=== PATIENT | male | born 1970 | race Caucasian/White ===

== ENCOUNTER 2020-08-29 18:11 | Inpatient (IN) | payer OTHER, MEDICAID, SELFPAY ==
[2020-08-29] VITALS (16 sets, daily range): BP systolic 79–115; BP diastolic 49–63; PULSE 87–102; RESP 18; TEMP 36.1; O2SAT 99–100; BMI 27.6
[2020-08-29 19:03] LABS: Bacteria Urine None Seen
[2020-08-29 19:06] LABS: Appearance Urine UA CLEAR; Bilirubin Urine UA NEGATIVE (NEGATIVE); Color Urine UA YELLOW; Glucose Urine UA NEGATIVE (Negative); Ketones Urine UA NEGATIVE (NEGATIVE); Leukocyte Esterase Urine UA NEGATIVE (NEGATIVE); Nitrite Urine UA NEGATIVE (Negative); Occult Blood Urine UA 2+ (Negative); Protein Urine UA NEGATIVE (Negative); Specific Gravity Urine UA 1.015 (1.000-1.035); Urobilinogen Urine UA 0.2 E.U./dL (0.2)
[2020-08-29 19:14] LABS: Culture Indicated Urine Cult Not Indicated; RBC Urine 10-30/HPF (0-5/HPF); Squamous Epithelial Cell Urine 0-1 /HPF (0-5/HPF); WBC Urine 0-1/HPF (0-5/HPF)
[2020-08-29 19:25] LABS: Add Manual Diff / Slide Review NO; Basophils Absolute Auto 100 /uL (0-100); Basophils Percent Auto 1.1 % (0-2); Eosinophils Absolute Auto 100 /uL (0-450); Eosinophils Percent Auto 1.6 % (2-4); Hematocrit 26.3 % (41-53); Hemoglobin 9.1 g/dL (13.5-17.5); Lymphocytes Absolute Auto 1000 /uL (1100-4500); Lymphocytes Percent Auto 19.1 % (25-40); Mean Corpuscular HGB Conc 34.4 % (30-36); Mean Corpuscular Hemoglobin 31.8 PG (26-34); Mean Corpuscular Volume 92.6 fL (80-100); Monocytes Absolute Auto 1100 /uL (0-900); Monocytes Percent Auto 20.8 % (3-14); Neutrophils Absolute Auto 3100 /uL (1500-7000); Neutrophils Percent Auto 57.4 % (50-75); Platelet Count 117 X10^3/uL (150-400); Red Blood Cell Count 2.84 X10^6/uL (4.5-5.9); Red Cell Distribution Width 15.2 % (11.6-14.8); White Blood Cell Count 5.4 X10^3/uL (4.5-11.0)
[2020-08-29 19:36] LABS: Ammonia (NH3) 102 umol/L (9-30)
[2020-08-29 19:39] LABS: Alanine Aminotransferase 32 IU/L (<50); Albumin 2.9 g/dL (3.5-5.0); Alkaline Phosphatase 115 U/L (38-126); Aspartate Aminotransferase 48 IU/L (17-59); BUN Creatinine Ratio 51.2 (6-22); Bilirubin Total 1.1 mg/dL (0.2-1.3); Blood Urea Nitrogen 86 mg/dL (9-20); Calcium 8.6 mg/dL (8.4-10.2); Carbon Dioxide 23 mmol/L (22-32); Chloride 98 mmol/L (98-107); Estimated Glomerular Filt Rate 43.1 mL/min (>60); Globulin 2.8 g/dL (1.7-4.1); Glucose 209 mg/dL (70-100); HEMOLYSIS < 15 (0-50); Lipase 899 U/L (23-300); Potassium 4.7 mmol/L (3.4-5.1); Sodium 126 mmol/L (137-145); Total Protein 5.7 g/dL (6.3-8.2)
[2020-08-29 20:11] LABS: COVID19 - ADMIT (NP swab/PCR) Negative (Negative)
--- NOTE | 2020-08-29 20:28 | PC.NURSE ---
Patient requesting to go to bathroom for bowel movement. Refuses to use bedside commode. Two person assistance with walker in room to wheelchair. patient very unsteady.
--- NOTE | 2020-08-29 21:32 | ED.RECABL ---
HPI - Recheck/Abnormal Lab/Rx General Chief Complaint: Recheck/Abnormal Lab/Rx Stated Complaint: Live CA, unable to care for self Time Seen by Provider: 08/29/20 20:57 Source: patient and EMS Mode of arrival: EMS Limitations: altered mental status History of Present Illness HPI narrative: This is a 50-year-old male with history of liver cancer. Patient states he follows with an solid waste landfill technician when asked specifically but is unable to give me the name. He EMS states they have been to his house 4 times in the last 24-48 hours to become up off floor. He has become increasingly weak. Patient states that he is currently seeking hospice treatment and is unable to care for himself at home. He does live with his mother but he typically performs his own activities of daily living. He wants to be comfort measures. He does not give much history. He is able to tell me that he is allergic to lisinopril. Related Data Home Medications Medication Instructions Recorded Confirmed albuterol sulfate 90 mcg/actuation 1 - 2 puff INHALATION Q4HR PRN 08/30/20 08/30/20 aerosol inhaler bupropion HCl 150 mg tablet,12 hr 150 mg PO BID 08/30/20 08/30/20 sustained-release insulin glargine 100 unit/mL 65 unit SUBCUT DAILY 08/30/20 08/30/20 subcutaneous cartridge insulin regular human 100 unit/mL 1 sliding scale dose SUBCUT 08/30/20 08/30/20 injection solution USEASDIRECTD rifaximin 550 mg tablet (Xifaxan) 550 mg PO BID 08/30/20 08/30/20 tamsulosin 0.4 mg capsule 0.4 mg PO DAILY 08/30/20 08/30/20 venlafaxine 75 mg capsule,extended 75 mg PO DAILY 08/30/20 08/30/20 release 24 hr Allergies Allergy/AdvReac Type Severity Reaction Status Date / Time cantaloupe Allergy Severe Anaphylaxis Verified 08/29/20 19:03 melon Allergy Severe Anaphylaxis Verified 08/29/20 19:03 lisinopril AdvReac Unknown Verified 08/29/20 19:03 Review of Systems Review of Systems ROS Unobtainable: All systems reviewed & are unremarkable except as noted in HPI and below Patient History Medical History End stage liver disease Social History household members: family Smoking Status: Never smoker alcohol intake: former Exam Narrative Exam Narrative: GEN: well nourished, well appearing male, alert, oriented to self patient appears to be in mild distress. Patient able to answer questions but does seem confused. HEENT: Atraumatic, pupils are equal round reactive to light, extraocular movements are intact, nares are clear. Throat is clear without any exudates, erythema, tonsillar enlargement or uvular deviation, no facial droop. HEART: Regular rate and rhythm without murmur, clicks, rubs. Pulses are equal in upper and lower extremities LUNGS:Lungs clear to auscultation, no wheezes, rales, crackles, chest moves symmetrically ABD:bowel sounds normal, soft, non-tender, no guarding, rebound, rigidity, no masses noted, no hepatosplenomegaly :No CVA tenderness MSCL: Non-tender, no muscle atrophy, patient moves legs and arms but does seem generally weak. Patient unable to stand safely unassisted, required two nurses to stand transfer from bed to chair. NEURO:CN 2-12 intact, sensation normal, reflexes 2/4 upper and lower extremities. SKIN: Rash, erythema or skin changes noted. Initial Vital Signs Initial Vital Signs: Vital Signs Temperature 97.0 F L 08/29/20 18:22 Pulse Rate 95 H 08/29/20 18:22 Respiratory Rate 18 08/29/20 18:22 Blood Pressure 115/57 L 08/29/20 18:22 Pulse Oximetry 100 08/29/20 18:22 Course Orders Ordered: ED Orders 08/29/20 23:11 CT abdomen pelvis w con Stat CT head/brain wo con Stat 08/29/20 23:40 COVID19 - ADMIT ([employer] swab/PCR) Stat Acetaminophen (Acetaminophen 325 Mg Tablet) 650 mg PO Q6HR PRN PRN Reason: Fever/Mild Pain (1-3) Sodium Chloride (Normal Saline 0.9%) 1,000 mls @ 125 mls/hr IV CONT ASHLEY Last Admin: 08/30/20 03:20 Dose: 125 mls/hr Documented by: INDY Piperacillin Sod/Tazobactam (Sod 4.5 gm/ Sodium Chloride) 100 mls @ 25 mls/hr IV Q8H ASHLEY Last Admin: 08/30/20 06:07 Dose: 25 mls/hr Documented by: INDY Ondansetron HCl (Ondansetron 4 Mg/2 Ml Inj) 4 mg IV Q4HR PRN PRN Reason: Nausea And Vomiting Discontinued Medications Piperacillin Sod/Tazobactam (Sod 4.5 gm/ Sodium Chloride) 100 mls @ 200 mls/hr IV NOW ONE Stop: 08/30/20 00:59 Last Infusion: 08/30/20 03:20 Dose: 0 mls/hr Documented by: Infusion: 08/30/20 01:44 Dose: 200 mls/hr Documented by: Admin: 08/30/20 01:25 Dose: 200 mls/hr Documented by: DONG Lactulose (Lactulose 20 Gm/30 Ml Solution) 20 gm PO NOW ONE Stop: 08/29/20 23:13 Last Admin: 08/30/20 00:07 Dose: 20 gm Documented by: DONG Consultations Consultation #1: Dr. Booker, patient's labs reviewed. Patient is requesting hospice but also confused. I do not have any prior history available for the patient. Discussed and like to get some additional imaging. This was obtained and we were able to get some records from [facility]. Appears patient does have a history of liver cell carcinoma, alcoholic cirrhosis and metabolic encephalopathy in the past. Patient also has some diabetes and had some additional information that he was diverted here. Consultation #2: Dr. Norris, is happy to follow with the patient. Discussed patient's confused so they are still some work to evaluate patient's goals of care fully. Plan for Zosyn for IV antibiotics, NPO. Vital Signs Vital signs: Vital Signs - 8 hr 08/29/20 23:00 08/29/20 23:33 08/29/20 23:40 Pulse Rate 102 H 102 H Blood Pressure 105/58 L 99/58 L Pulse Oximetry 99 100 08/30/20 00:00 08/30/20 00:30 Pulse Rate 103 H 103 H Blood Pressure Pulse Oximetry 99 99 MDM - Recheck/Abnormal Lab/Rx Lab Data Result diagrams: 08/29/20 19:11 08/29/20 19:11 Labs: Lab Results 08/29/20 08/29/20 08/29/20 Range/Units 19:00 19:00 19:11 WBC 5.4 (4.5-11.0) X10^3/uL RBC 2.84 L (4.5-5.9) X10^6/uL Hgb 9.1 L (13.5-17.5) g/dL Hct 26.3 L (41-53) % MCV 92.6 (80-100) fL MCH 31.8 (26-34) PG MCHC 34.4 (30-36) % RDW 15.2 H (11.6-14.8) % Plt Count 117 L (150-400) X10^3/uL Neut % (Auto) 57.4 (50-75) % Lymph % (Auto) 19.1 L (25-40) % [place]mullen % (Auto) 20.8 H (3-14) % Eos % (Auto) 1.6 L (2-4) % Baso % (Auto) 1.1 (0-2) % Neut # (Auto) 3100 (5358-5267) /uL Lymph # (Auto) 1000 L (8659-4323) /uL Mcmullen # (Auto) 1100 H (0-900) /uL Eos # (Auto) 100 (0-450) /uL Baso # (Auto) 100 (0-100) /uL Sodium (137-145) mmol/L Potassium (3.4-5.1) mmol/L Chloride (98-107) mmol/L Carbon Dioxide (22-32) mmol/L BUN (9-20) mg/dL Creatinine (0.66-1.25) mg/dL Estimated GFR (>60) mL/min BUN/Creatinine Ratio (6-22) Glucose (70-100) mg/dL Calcium (8.4-10.2) mg/dL Total Bilirubin (0.2-1.3) mg/dL AST (17-59) IU/L ALT (<50) IU/L Alkaline Phosphatase (38-126) U/L Ammonia (9-30) umol/L Total Protein (6.3-8.2) g/dL Albumin (3.5-5.0) g/dL Globulin (1.7-4.1) g/dL Albumin/Globulin Ratio (1.0-2.8) Lipase (23-300) U/L Urine Color Yellow Urine Appearance Clear Urine pH 5.0 (4.5-8.0) Ur Specific [place] 1.015 (1.000-1.035) Urine Protein Negative (Negative) Urine Glucose (UA) Negative (Negative) g/dL Urine Ketones Negative (NEGATIVE) Urine Occult Blood 2+ H (Negative) Urine Nitrate Negative (Negative) Urine Bilirubin Negative (NEGATIVE) Urine Urobilinogen 0.2 (0.2) E.U./dL Ur Leukocyte Esterase Negative (NEGATIVE) Urine RBC 10-30/hpf H (0-5/HPF) Urine WBC 0-1/hpf (0-5/HPF) Ur Squamous Epith Cells 0-1 /hpf (0-5/HPF) Urine Bacteria None seen (None) Ur Culture Indicated? Cult not indicated Ethyl Alcohol ( - 10) mg/dL SARS-CoV-2 (PCR) Negative (Negative) 08/29/20 08/29/20 08/29/20 Range/Units 19:11 19:11 19:11 WBC (4.5-11.0) X10^3/uL RBC (4.5-5.9) X10^6/uL Hgb (13.5-17.5) g/dL Hct (41-53) % MCV (80-100) fL MCH (26-34) PG MCHC (30-36) % RDW (11.6-14.8) % Plt Count (150-400) X10^3/uL Neut % (Auto) (50-75) % Lymph % (Auto) (25-40) % [place] % (Auto) (3-14) % Eos % (Auto) (2-4) % Baso % (Auto) (0-2) % Neut # (Auto) (8752-7378) /uL Lymph # (Auto) (3986-6575) /uL Mcmullen # (Auto) (0-900) /uL Eos # (Auto) (0-450) /uL Baso # (Auto) (0-100) /uL Sodium 126 L (137-145) mmol/L Potassium 4.7 (3.4-5.1) mmol/L Chloride 98 (98-107) mmol/L Carbon Dioxide 23 (22-32) mmol/L BUN 86 H (9-20) mg/dL Creatinine 1.68 H (0.66-1.25) mg/dL Estimated GFR 43.1 L (>60) mL/min BUN/Creatinine Ratio 51.2 H (6-22) Glucose 209 H (70-100) mg/dL Calcium 8.6 (8.4-10.2) mg/dL Total Bilirubin 1.1 (0.2-1.3) mg/dL AST 48 (17-59) IU/L ALT 32 (<50) IU/L Alkaline Phosphatase 115 (38-126) U/L Ammonia 102 H (9-30) umol/L Total Protein 5.7 L (6.3-8.2) g/dL Albumin 2.9 L (3.5-5.0) g/dL Globulin 2.8 (1.7-4.1) g/dL Albumin/Globulin Ratio 1.0 (1.0-2.8) Lipase 899 H (23-300) U/L Urine Color Urine Appearance Urine pH (4.5-8.0) Ur Specific [place] (1.000-1.035) Urine Protein (Negative) Urine Glucose (UA) (Negative) g/dL Urine Ketones (NEGATIVE) Urine Occult Blood (Negative) Urine Nitrate (Negative) Urine Bilirubin (NEGATIVE) Urine Urobilinogen (0.2) E.U./dL Ur Leukocyte Esterase (NEGATIVE) Urine RBC (0-5/HPF) Urine WBC (0-5/HPF) Ur Squamous Epith Cells (0-5/HPF) Urine Bacteria (None) Ur Culture Indicated? Ethyl Alcohol < 10 ( - 10) mg/dL SARS-CoV-2 (PCR) (Negative) 08/29/20 Range/Units 23:40 WBC (4.5-11.0) X10^3/uL RBC (4.5-5.9) X10^6/uL Hgb (13.5-17.5) g/dL Hct (41-53) % MCV (80-100) fL MCH (26-34) PG MCHC (30-36) % RDW (11.6-14.8) % Plt Count (150-400) X10^3/uL Neut % (Auto) (50-75) % Lymph % (Auto) (25-40) % [place] % (Auto) (3-14) % Eos % (Auto) (2-4) % Baso % (Auto) (0-2) % Neut # (Auto) (3820-3208) /uL Lymph # (Auto) (7316-3278) /uL [place] # (Auto) (0-900) /uL Eos # (Auto) (0-450) /uL Baso # (Auto) (0-100) /uL Sodium (137-145) mmol/L Potassium (3.4-5.1) mmol/L Chloride (98-107) mmol/L Carbon Dioxide (22-32) mmol/L BUN (9-20) mg/dL Creatinine (0.66-1.25) mg/dL Estimated GFR (>60) mL/min BUN/Creatinine Ratio (6-22) Glucose (70-100) mg/dL Calcium (8.4-10.2) mg/dL Total Bilirubin (0.2-1.3) mg/dL AST (17-59) IU/L ALT (<50) IU/L Alkaline Phosphatase (38-126) U/L Ammonia (9-30) umol/L Total Protein (6.3-8.2) g/dL Albumin (3.5-5.0) g/dL Globulin (1.7-4.1) g/dL Albumin/Globulin Ratio (1.0-2.8) Lipase (23-300) U/L Urine Color Urine Appearance Urine pH (4.5-8.0) Ur Specific [place] (1.000-1.035) Urine Protein (Negative) Urine Glucose (UA) (Negative) g/dL Urine Ketones (NEGATIVE) Urine Occult Blood (Negative) Urine Nitrate (Negative) Urine Bilirubin (NEGATIVE) Urine Urobilinogen (0.2) E.U./dL Ur Leukocyte Esterase (NEGATIVE) Urine RBC (0-5/HPF) Urine WBC (0-5/HPF) Ur Squamous Epith Cells (0-5/HPF) Urine Bacteria (None) Ur Culture Indicated? Ethyl Alcohol ( - 10) mg/dL SARS-CoV-2 (PCR) Negative (Negative) Imaging Data CT scan - head: Radiologist's Impression: No acute process CT scan - abdomen/pelvis: Radiologist's Impression: Cholelithiasis with gallbladder wall thickening and pericholecystic inflammation. Large volume ascites of abdomen and pelvis. Large rectal fecal impaction. No focal abnormalities noted liver spleen. Pancreas and adrenal glands within normal limits. No focal renal abnormality, stone or hydronephrosis. Page catheter noted in bladder. MDM Narrative Medical decision making narrative: This is a 50-year-old male comes to the emergency department for multiple falls in the last 24 hours per EMS patient is also interested in hospice. Patient confirms this but he does seem confused. He is noted have an elevated ammonia level, anemia and thrombocytopenia. Patient's sodium is 126 which may be contributing as well. Creatinine is 1.68 with a BUN 86 unclear if this is normal baseline. Patient does have a mildly elevated lipase at 899. UA shows 2+, 10-[address] is negative. CT abdomen and pelvis, shows ascites. Cholelithiasis and cholecystitis. Patient's exam he does not have any acute tenderness but he is somewhat confused. Patient was given IV antibiotics. Spoke with Dr. Booker who accepts for admission. Also spoke with Dr. Norris with general surgery who will follow-up with patient. Discharge Plan Departure Patient Disposition: Admitted As Inpatient Clinical Impression: Hyponatremia, Weakness, Cholelithiasis, Cholecystitis Admit Date/Time: 08/30/20 01:08 Admit Provider: Amol Booker
--- NOTE | 2020-08-29 23:11 | DI.CT.S_ITS ---
PROCEDURE: CT HEAD/BRAIN WO CON INDICATIONS: confusion, history of liver cancer. TECHNIQUE: Noncontrast 4.5 mm thick angled axial sections acquired from the foramen magnum to the vertex, with coronal and sagittal reformats. For radiation dose reduction, the following was used: automated exposure control, adjustment of mA and/or kV according to patient size. COMPARISON: None. FINDINGS: Image quality: Excellent. CSF spaces: Basal cisterns are patent. No extra-axial fluid collections. The ventricles are symmetric in size and shape. Brain: No intracranial bleeds or masses. There is cerebral volume loss for age, with resultant ventricular and sulcal prominence. There are periventricular and deep white matter chronic small vessel ischemic changes. There is intracranial internal carotid artery atherosclerosis. Skull and face: Calvarium and visualized facial bones appear intact, without suspicious lesions. Sinuses: Visualized sinuses and mastoids are clear. IMPRESSION: No acute intracranial disease process. Dictated by: Tianna Duncan MD, PhD on 08/30/2020 at 7:40 Approved by: Tianna Duncan MD, PhD on 08/30/2020 at 7:41
--- NOTE | 2020-08-29 23:11 | DI.CT.S_ITS ---
PROCEDURE: CT ABDOMEN PELVIS W CON INDICATIONS: liver cancer history, weakness, confusion TECHNIQUE: After the administration of intravenous contrast, axial sections acquired from the lung bases to the pubic symphysis. Coronal and sagittal reformats were performed. For radiation dose reduction, the following was used: automated exposure control, adjustment of mA and/or kV according to patient size. COMPARISON: Outside Film, US, US RENAL COMPLETE, 12/13/2018, 8:27. [facility], MR, MR ABDOMEN WITH/WITHOUT CONTRAST, 02/28/2020, 10:35. FINDINGS: Image quality: Excellent. Lung bases: There are respiratory motion artifacts. Heart: No significant findings. ABDOMEN: Liver: Liver demonstrates nodular contour consistent with cirrhosis. Gallbladder: Gallbladder is mildly distended and contains gallstones. There is gallbladder wall thickening and pericholecystic fluid. Biliary ducts: Unremarkable. Pancreas: Unremarkable. Spleen: Unremarkable. Adrenal Glands: Unremarkable. Kidneys and Ureters: Unremarkable. Stomach and Bowel: Stomach, small bowel loops, and colon are unremarkable. Appendix is normal. Peritoneum: A large amount of free abnormal intraperitoneal fluid is present. No free air. Ventral Wall: Small periumbilical hernia containing fluid. Abdominal Nodes: No retroperitoneal or mesenteric adenopathy by size criteria. Vessels: Aorta and inferior vena cava are normal in size. Recanalized umbilical vein. Multiple venous collaterals are seen in the left upper quadrant, likely secondary to portal hypertension. PELVIS: Pelvic Organs: Unremarkable. Bladder: There is a Page catheter in the bladder. Bladder is contracted. Pelvic Nodes: No enlarged lymph nodes. Miscellaneous: No hernias are seen. Bones: Moderate degenerative changes in lumbar spine. IMPRESSION: 1. Cirrhotic liver and portal hypertension. 2. Cholelithiasis. There is mild gallbladder wall thickening. Recommend clinical correlation for acute cholecystitis. 3. Large amount of ascites. No significant discrepancy with the shiftman radiology preliminary report. Dictated by: Darby Francois M.D. on 08/30/2020 at 7:46 Approved by: Darby Francois M.D. on 08/30/2020 at 7:54
[2020-08-29 23:29] LABS: Ethanol (ETOH) < 10 mg/dL
[2020-08-30] VITALS (9 sets, daily range): BP systolic 103–118; BP diastolic 62–70; PULSE 87–103; RESP 16–18; TEMP 36.1–36.7; O2SAT 98–100; BMI 26.5
[2020-08-30] MEDS: LACTULOSE 20 GM/30 ML SOLUTION PO (00:07)
--- NOTE | 2020-08-30 00:18 | PC.NURSE ---
Pt took lactulose with orange juice without difficulty.
[2020-08-30 00:35] LABS: COVID19 - ADMIT (NP swab/PCR) Negative (Negative)
[2020-08-30] MEDS: PIPERACILLIN/TAZO 4.5 GM in SODIUM CHLORIDE 0.9% 100 ML 200 ML IV (01:25)
[2020-08-30] MEDS: SODIUM CHLORIDE 0.9% 1,000 ML 125 ML IV (03:20)
--- NOTE | 2020-08-30 04:10 | PC.ADMIT ---
[address] Admission Note: Patient arrived to the unit at 0140 via bed from the ED. Patient is Alert and responsive but quickly goes back to sleep and is tired. Patient is confused on the date and situation but can state his name and . Patient has his iPad and clothing with him in the room. Patient medical record was brought up from the ED and the home medication list was updated using this record. Patient was oriented to room and call light and is resting in bed with no other complaints at this time. The patient,Phill Ramires,50 y/o, was given written information regarding hospital policies, unit procedures and contact persons. Patient's smoking status: Never smoker. Vital Signs - 8 hr 08/29/20 20:37 08/29/20 20:38 08/29/20 21:00 Temperature Pulse Rate 95 H 95 H 87 Respiratory Rate Blood Pressure 113/58 L Pulse Oximetry 100 100 100 08/29/20 21:01 08/29/20 21:02 08/29/20 21:03 Temperature Pulse Rate 88 91 H 92 H Respiratory Rate Blood Pressure 79/49 L 105/59 L Pulse Oximetry 100 100 100 08/29/20 21:30 08/29/20 22:00 08/29/20 22:30 Temperature Pulse Rate Respiratory Rate Blood Pressure 98/62 101/56 L 99/62 Pulse Oximetry 08/29/20 23:00 08/29/20 23:33 08/29/20 23:40 Temperature Pulse Rate 102 H 102 H Respiratory Rate Blood Pressure 105/58 L 99/58 L Pulse Oximetry 99 100 08/30/20 00:00 08/30/20 00:30 08/30/20 01:31 Temperature 98.0 F Pulse Rate 103 H 103 H 103 H Respiratory Rate 18 Blood Pressure 109/69 Pulse Oximetry 99 99 98 08/30/20 01:50 Temperature 97.0 F L Pulse Rate 102 H Respiratory Rate 16 Blood Pressure 104/70 Pulse Oximetry 100
[2020-08-30] MEDS: PIPERACILLIN/TAZO 4.5 GM in SODIUM CHLORIDE 0.9% 100 ML 25 ML IV (06:07)
--- NOTE | 2020-08-30 08:41 | PC.NURSE ---
Dr. Zacarias notified of patients normal Insulin dosage at home, 44 units QAM. Per verbal order read back, RN to give 20 units of Glargine.
[2020-08-30 08:48] LABS: Hematocrit 25.9 % (41-53); Hemoglobin 9.1 g/dL (13.5-17.5); Mean Corpuscular HGB Conc 35.1 % (30-36); Mean Corpuscular Hemoglobin 32.6 PG (26-34); Mean Corpuscular Volume 92.9 fL (80-100); Platelet Count 117 X10^3/uL (150-400); Red Blood Cell Count 2.79 X10^6/uL (4.5-5.9)
[2020-08-30 08:53] LABS: INR 1.2 (0.9-1.3); Prothrombin Time 13.7 SECONDS (10.1-12.7)
[2020-08-30] MEDS: LACTULOSE 20 GM/30 ML SOLUTION 30 GM PO ×3 (09:06→15:23)
[2020-08-30] MEDS: INSULIN GLARGINE 100 UNIT/ML 3ML PEN 30 UNIT SUBCUT (09:11)
[2020-08-30] MEDS: INSULIN LISPRO 100 UNIT/ML 3ML VIAL SUBCUT ×3 (09:11→17:04)
[2020-08-30 09:17] LABS: Procalcitonin 0.85 ng/mL (<0.5)
--- NOTE | 2020-08-30 09:39 | DI.US.S_ITS ---
PROCEDURE: US ABDOMEN LIMITED INDICATIONS: ASCITES TECHNIQUE: Real-time focused scanning was performed of the abdomen, with image documentation. COMPARISON: [facility], CT, CT ABDOMEN PELVIS W CON, 08/29/2020, 23:16. [facility], MR, MR ABDOMEN WITH/WITHOUT CONTRAST, 02/28/2020, 10:35. Outside Film, US, US RENAL COMPLETE, 12/13/2018, 8:27. FINDINGS: There is ascites within the peritoneal space but the quantity described in CT report from 08/29/20 was large. The quantity currently present is not large, and large and small bowel is seen interdigitating amongst the ascites present. The patient receives regular twice weekly paracentesis at [facility]. Safe access for routine paracentesis is not possible today. It may be possible later in the week. Please refer to the [facility] Medical Records related to paracentesis fluid analysis and cytology. IMPRESSION: Safe access for paracentesis is not currently available. Dictated by: Jourdan Obrien M.D. on 08/30/2020 at 11:09 Approved by: Jourdan Obrien M.D. on 08/30/2020 at 11:12
[2020-08-30 09:50] LABS: BUN Creatinine Ratio 47.5 (6-22); Blood Urea Nitrogen 77 mg/dL (9-20); Calcium 8.8 mg/dL (8.4-10.2); Carbon Dioxide 23 mmol/L (22-32); Chloride 101 mmol/L (98-107); Glucose 134 mg/dL (70-100); HEMOLYSIS < 15 (0-50); Potassium 4.8 mmol/L (3.4-5.1); Sodium 129 mmol/L (137-145)
--- NOTE | 2020-08-30 11:02 | PC.NURSE ---
Dr. Zacarias notified that the paracentesis was not performed. verbalized understanding, no new orders received.
--- NOTE | 2020-08-30 13:41 | P.HP_ITS ---
History of Present Illness History of Present Illness Date Patient Seen: 08/30/20 Time Patient Seen: 08:00 Chief complaint: Live CA, unable to care for self Narrative: Mr. Ramires is a 50M with liver cancer, cirrhosis that is decompensated with refractory ascites needing twice weekly large volume paracentesis, hepatic encephalopathy diabetes who is coming in with multiple issues, but primarily because his family is unable to care for him. History is obtained from patient and mother. Patient has been chronically declining, getting weaker, getting more confused, not eating well, refusing to take his medications (such as lactulose). His mother is unable to care for him. She has been discussing with social secretary about getting patient placed and on hospice. The patient is encephalopathic, and states that he came in because he was feeling crazy. Otherwise he does not respond affirmatively or negatively to review of systems. He denies pain except for in his tailbone. In the ED he was noted to have borderline tachycardia. WBC 5.4, Hgb 9.1, plts 117. UA negative for infection. Na 126, creqatinine 1.68. Ammonia 102. Lipase 899. CT abdomen showed a cirrhotic liver and portal hypertension, gallbladder wall is mildly thickened, large amount of ascites was noted. CT head showed no acute process. He was given lactulose, zosyn, and IV fluids and admitted for further treatment. Family history: Mother with CAD Patient History Medical History End stage liver disease Family & Social History Social History: household members family Prior Living Arrangements Apartment/Condo Safety & Behavioral: Feels Safe in Current Yes Environment Been Physically Hurt or No Threatened By a Person Suicidal Ideation Description None Suicide Plan Description No Plan Tobacco & Substance use: Tobacco type cigarettes Smoking Status Never smoker alcohol intake former Substance Use Type does not use Meds Home Medications and Allergies Home Medications Medication Instructions Recorded Confirmed Type albuterol sulfate 90 mcg/actuation 1 - 2 puff INHALATION Q4HR PRN 08/30/20 08/30/20 History aerosol inhaler bupropion HCl 150 mg tablet,12 hr 150 mg PO BID 08/30/20 08/30/20 History sustained-release insulin glargine 100 unit/mL 65 unit SUBCUT DAILY 08/30/20 08/30/20 History subcutaneous cartridge insulin regular human 100 unit/mL 1 sliding scale dose SUBCUT 08/30/20 08/30/20 History injection solution USEASDIRECTD rifaximin 550 mg tablet (Xifaxan) 550 mg PO BID 08/30/20 08/30/20 History tamsulosin 0.4 mg capsule 0.4 mg PO DAILY 08/30/20 08/30/20 History venlafaxine 75 mg capsule,extended 75 mg PO DAILY 08/30/20 08/30/20 History release 24 hr Allergies Allergy/AdvReac Type Severity Reaction Status Date / Time cantaloupe Allergy Severe Anaphylaxis Verified 08/29/20 19:03 melon Allergy Severe Anaphylaxis Verified 08/29/20 19:03 lisinopril AdvReac Unknown Verified 08/29/20 19:03 Review of Systems Review of Systems Narrative: Unable to be performed due to hepatic encephalopathy Exam Vital Signs (past 8 hours): - 08/30/20 08:11 Temperature 98 F Pulse Rate 93 H Respiratory Rate 17 Blood Pressure 118/70 Pulse Oximetry 100 Oxygen Delivery Method Room Air Oxygen Flow Rate 0 Narrative Exam Narrative: GEN: chronically ill appearing male, confused HEENT: Moist mucous membranes, PERRL NECK: no JVD, trachea midline HEART: Regular rate and rhythm without murmur LUNGS:Lungs clear to auscultation, no wheezes, rales, crackles ABD:bowel sounds normal, soft, non-tender, no hepatosplenomegaly MSK: warm and well perfused with no edema, spontaneously moving all extremities NEURO: cranial nerves intact, globally weak, confused and lethargic SKIN: no rash noted Objective Labs Result Diagrams: 08/30/20 08:34 08/30/20 08:34 Labs: Laboratory Results - last 24 hr 08/29/20 08/29/20 08/29/20 19:00 19:00 19:11 WBC 5.4 RBC 2.84 L Hgb 9.1 L Hct 26.3 L MCV 92.6 MCH 31.8 MCHC 34.4 RDW 15.2 H Plt Count 117 L Neut % (Auto) 57.4 Lymph % (Auto) 19.1 L Bosque % (Auto) 20.8 H Eos % (Auto) 1.6 L Baso % (Auto) 1.1 Neut # (Auto) 3100 Lymph # (Auto) 1000 L Bosque # (Auto) 1100 H Eos # (Auto) 100 Baso # (Auto) 100 PT INR Sodium Potassium Chloride Carbon Dioxide BUN Creatinine Estimated GFR BUN/Creatinine Ratio Glucose Calcium Total Bilirubin AST ALT Alkaline Phosphatase Ammonia Total Protein Albumin Globulin Albumin/Globulin Ratio Lipase Procalcitonin Urine Color Yellow Urine Appearance Clear Urine pH 5.0 Ur Specific Independence 1.015 Urine Protein Negative Urine Glucose (UA) Negative Urine Ketones Negative Urine Occult Blood 2+ H Urine Nitrate Negative Urine Bilirubin Negative Urine Urobilinogen 0.2 Ur Leukocyte Esterase Negative Urine RBC 10-30/hpf H Urine WBC 0-1/hpf Ur Squamous Epith Cells 0-1 /hpf Urine Bacteria None seen Ur Culture Indicated? Cult not indicated Ethyl Alcohol SARS-CoV-2 (PCR) Negative 08/29/20 08/29/20 08/29/20 19:11 19:11 19:11 WBC RBC Hgb Hct MCV MCH MCHC RDW Plt Count Neut % (Auto) Lymph % (Auto) Bosque % (Auto) Eos % (Auto) Baso % (Auto) Neut # (Auto) Lymph # (Auto) Bosque # (Auto) Eos # (Auto) Baso # (Auto) PT INR Sodium 126 L Potassium 4.7 Chloride 98 Carbon Dioxide 23 BUN 86 H Creatinine 1.68 H Estimated GFR 43.1 L BUN/Creatinine Ratio 51.2 H Glucose 209 H Calcium 8.6 Total Bilirubin 1.1 AST 48 ALT 32 Alkaline Phosphatase 115 Ammonia 102 H Total Protein 5.7 L Albumin 2.9 L Globulin 2.8 Albumin/Globulin Ratio 1.0 Lipase 899 H Procalcitonin Urine Color Urine Appearance Urine pH Ur Specific Independence Urine Protein Urine Glucose (UA) Urine Ketones Urine Occult Blood Urine Nitrate Urine Bilirubin Urine Urobilinogen Ur Leukocyte Esterase Urine RBC Urine WBC Ur Squamous Epith Cells Urine Bacteria Ur Culture Indicated? Ethyl Alcohol < 10 SARS-CoV-2 (PCR) 08/29/20 08/30/20 08/30/20 23:40 08:34 08:34 WBC 5.0 RBC 2.79 L Hgb 9.1 L Hct 25.9 L MCV 92.9 MCH 32.6 MCHC 35.1 RDW 15.0 H Plt Count 117 L Neut % (Auto) Lymph % (Auto) Bosque % (Auto) Eos % (Auto) Baso % (Auto) Neut # (Auto) Lymph # (Auto) Bosque # (Auto) Eos # (Auto) Baso # (Auto) PT INR Sodium 129 L Potassium 4.8 Chloride 101 Carbon Dioxide 23 BUN 77 H Creatinine 1.62 H Estimated GFR 45.0 L BUN/Creatinine Ratio 47.5 H Glucose 134 H Calcium 8.8 Total Bilirubin AST ALT Alkaline Phosphatase Ammonia Total Protein Albumin Globulin Albumin/Globulin Ratio Lipase Procalcitonin Urine Color Urine Appearance Urine pH Ur Specific Independence Urine Protein Urine Glucose (UA) Urine Ketones Urine Occult Blood Urine Nitrate Urine Bilirubin Urine Urobilinogen Ur Leukocyte Esterase Urine RBC Urine WBC Ur Squamous Epith Cells Urine Bacteria Ur Culture Indicated? Ethyl Alcohol SARS-CoV-2 (PCR) Negative 08/30/20 08/30/20 08:34 08:34 WBC RBC Hgb Hct MCV MCH MCHC RDW Plt Count Neut % (Auto) Lymph % (Auto) Bosque % (Auto) Eos % (Auto) Baso % (Auto) Neut # (Auto) Lymph # (Auto) Bosque # (Auto) Eos # (Auto) Baso # (Auto) PT 13.7 H INR 1.2 Sodium Potassium Chloride Carbon Dioxide BUN Creatinine Estimated GFR BUN/Creatinine Ratio Glucose Calcium Total Bilirubin AST ALT Alkaline Phosphatase Ammonia Total Protein Albumin Globulin Albumin/Globulin Ratio Lipase Procalcitonin 0.85 H Urine Color Urine Appearance Urine pH Ur Specific Independence Urine Protein Urine Glucose (UA) Urine Ketones Urine Occult Blood Urine Nitrate Urine Bilirubin Urine Urobilinogen Ur Leukocyte Esterase Urine RBC Urine WBC Ur Squamous Epith Cells Urine Bacteria Ur Culture Indicated? Ethyl Alcohol SARS-CoV-2 (PCR) Assessment & Plan Assessment & Plan narrative: Mr. Ramires is a 50M with PMH of liver cancer, decopensated cirrhosis presenting from home with confusion secondary to hepatic encephalopathy 1. Acute hepatic encephalopathy -per mother, patient has stopped taking lactulose consistenly -no other clear source of infection, has normal wbc, procalcitonin mildly elevated, gallbladder wall mildly thickened but to murphys sign so likely secondary to edema, has small amount of ascites that is unable to be tapped for a para, ua negative -placed on zosyn overnight for possible intra-abdominal infection, but think this is less likely, but will continue for now -will attempt aggressive lactulose administration to see if patient's mental status will improve 2. Liver cancer from cirrhosis, decompensated cirrhosis with ascites and encephalopathy -discussed with mother and patient difficult to care for at home, patient and mother agree patient wants to be no code, and placed on hospice 3. Type 2 Diabetes in insulin -on 40U insulin at home -will order patient for 20U insulin while not eating well -insulin sliding scale ordered 4. Anemia, thrombocytopenia -secondary to cirrhosis -no need for transfusion at this time 5. Hyponatremia -secondary to cirrhosis -did get IV fluids with saline, will stop for now and given 25% albumin as needed 6. Elevated creatinine -presumably CHON from decompensated cirrhosis, possibly HRS -will order IV albumin to see if this improves renal function CODE: DNR, DNI Proxy: Mother, Phuong Ramires DVT ppx: Heparin SC DIET: diabetic, low sodium DISPO: hospice referral
--- NOTE | 2020-08-30 13:53 | CM.DANOTE ---
Addendum entered by Edna Del Valle LPN 08/30/20 15:46: Received a call from Simona who said Corey Nguyen planned to be out tomorrow to meet with pt. Have now spoken with Radha/Corey Nguyen. She said that she and Nury would be out tomorrow early afternoon right after an meeting. She sounded very positive re the acceptance process. Dr. Zacarias is updated, says he has made some medication changes in hopes that pt will be mentally clearer and he will connect with the DCP team on for tomorrow. Addendum entered by Edna Del Valle LPN 08/30/20 15:08: H&P is now available. This is faxed to [facility]/Leslie. Leslie has also agreed to speak with Corey Nguyen as she says they have worked together often and she agrees this would be an excellent place for pt to receive his end of life care. Original Note: Discharge Planning/Care Management DCP: assessment: case receive and discussed in Team Rounds. Dr. Zacarias stated that pt may be ready for a d/c today after the paracentesis. He said his understanding was that pt was to admit to a facility under Hospice Care but did not know the details. Have worked on this case periodically throughout the day. Spoke by phone with pt's mother Phuong, the [employer] school social worker Simona Gibson: [phone] and the pt once he returned from the paracentesis attempt/not done/see report. Pt is a 50 year old male with advanced liver cancer who admitted early this morning 08/31 107 to care of hospitalist team. No H&P is currently available. Payer: Care /Medicaid. Pt is able to speak about his plans but needs to be roused from sleep and does nod off during conversation. He expressed great surprise at idea that he may be d/c'd today. He is at this time dependent with his care at the hospital. PT has been order to look at specifics but nursing notes it is even difficult to get pt on a bedpan. Pt does confirm that his desire is to be on Hospice Care and his PCP: Dr. Ortiz had sent in a referral to [facility]. He said he is also aware that he needs a facility to care for him during this time. His [employer] school social worker Simona confirms same, says she did the assessment of pt on , was ill on Saturday and today (Saturday) sent over the assessment to [facility] in [place]. She has also provided this assessment to the CMDCP team/she is just sending this now to MERE Christianson via secure email process. Simona says the home setting with [facility] workers in place is not realistic as there are currently no [facility] caregivers available in the [place] area. Have spoken to Nury/Corey Nguyen: [phone]. She and Radha (who spoke earlier with Simona) will review case for acceptance. She understands that [facility] is standing by to accept pt when he has a stable 24/ care situation. (Leslie/Carlita has confirm same.) Did attempt to fax clinical updates to Simona but the fax # she provided does not go through and she says It may be down again. P: at this time the plan is for pt to d/c to [facility] if accepted and under Hospice care but it is unclear how quickly this will be accomplished. Dr. Zacarias is updated. CM Discharge Assessment Start: 08/30/20 13:49 Freq: Status: Active Protocol: Document 08/30/20 13:49 ITV (Rec: 08/30/20 13:52 ITV [id number]) Discharge Planning Assessment Advance Directives? No History Provided By Patient,Family Member,Medical Record Prior Living Arrangements Apartment/Condo Household Members family Comment lives with his mother Phuong who states she is in poor health and cannot assist pt physically. Type of transporation used prior to Relies on Others admit Independent with ADL's No Is patient alert and oriented? Yes Document 08/30/20 13:53 ITV (Rec: 08/30/20 13:53 ITV [id number]) Discharge Planning Assessment Advance Directives? No History Provided By Patient,Family Member,Medical Record Prior Living Arrangements Apartment/Condo Household Members family Comment lives with his mother Phuong who states she is in poor health and cannot assist pt physically. Type of transporation used prior to Relies on Others admit Independent with ADL's No Is patient alert and oriented? Yes Review Status In Process
[2020-08-30] MEDS: PIPERACILLIN/TAZO 3.375 GM in SODIUM CHLORIDE 0.9% 100 ML 25 ML IV ×2 (13:54→22:09)
[2020-08-30] MEDS: ALBUMIN HUMAN IV (14:51)
[2020-08-30] MEDS: ONDANSETRON 4 MG/2 ML INJ IV (15:41)
--- NOTE | 2020-08-30 15:41 | PT-IP ANOTE ---
Attempted PT eval x 3 but pt unable to participate. attempted to obtain home set up and PLOF and pt is unable to stay alert to answer questions. attempted several time to keep pt awake but unable. pt is not appropriate for PT at this time.
--- NOTE | 2020-08-30 20:08 | PC.NURSE ---
Patient is getting scheduled lactulose and first dose on my shift caused significant nausea and dry heaving. Zofran given at 1545. Patient having copious bowel movements as well. Next lactulose dose at 1945 but patient having more nausea and emesis of 200mL. Unable to give more zofran, so discussed with NASRA Bai. She changed zofran from q 8hours to q 6hours and suggested rectal administration. Discussed with charge and nurse riprap placing supervisor and unsure if patient could tolerate 700mL rectally. Talked with NASRA Bai additionally to voice my concern and was told to try. Informed patient of options and he refused oral or rectal lactulose and will try again at 1145 dose.
[2020-08-30] MEDS: HEPARIN 5,000 UNIT/ML VIAL 5000 UNIT SUBCUT (22:09)
[2020-08-31] VITALS (7 sets, daily range): BP systolic 95–116; BP diastolic 56–72; PULSE 78–103; RESP 15–18; TEMP 36.2–36.6; O2SAT 95–100
[2020-08-31] MEDS: ONDANSETRON 4 MG/2 ML INJ IV ×2 (00:07→08:15)
[2020-08-31] MEDS: LACTULOSE 20 GM/30 ML SOLUTION 30 GM PO ×5 (00:07→21:09)
[2020-08-31] MEDS: SODIUM CHLORIDE 0.9% 1,000 ML 100 ML IV (04:16)
[2020-08-31] MEDS: PIPERACILLIN/TAZO 3.375 GM in SODIUM CHLORIDE 0.9% 100 ML 25 ML IV ×2 (06:22→14:55)
[2020-08-31 06:59] LABS: Add Manual Diff / Slide Review NO; Basophils Absolute Auto 100 /uL (0-100); Basophils Percent Auto 1.3 % (0-2); Eosinophils Absolute Auto 100 /uL (0-450); Eosinophils Percent Auto 3.1 % (2-4); Hemoglobin 8.4 g/dL (13.5-17.5); Lymphocytes Absolute Auto 800 /uL (1100-4500); Lymphocytes Percent Auto 19.7 % (25-40); Mean Corpuscular Hemoglobin 32.6 PG (26-34); Mean Corpuscular Volume 93.3 fL (80-100); Monocytes Absolute Auto 700 /uL (0-900); Monocytes Percent Auto 17.6 % (3-14); Neutrophils Absolute Auto 2400 /uL (1500-7000); Neutrophils Percent Auto 58.3 % (50-75); Platelet Count 107 X10^3/uL (150-400); Red Blood Cell Count 2.57 X10^6/uL (4.5-5.9); Red Cell Distribution Width 15.1 % (11.6-14.8); White Blood Cell Count 4.1 X10^3/uL (4.5-11.0)
[2020-08-31 07:05] LABS: Alanine Aminotransferase 26 IU/L (<50); Albumin 3.4 g/dL (3.5-5.0); Albumin Globulin Ratio 1.4 (1.0-2.8); Alkaline Phosphatase 83 U/L (38-126); Aspartate Aminotransferase 40 IU/L (17-59); Bilirubin Total 1.8 mg/dL (0.2-1.3); Blood Urea Nitrogen 64 mg/dL (9-20); Calcium 9.1 mg/dL (8.4-10.2); Carbon Dioxide 22 mmol/L (22-32); Chloride 105 mmol/L (98-107); Estimated Glomerular Filt Rate 45.6 mL/min (>60); Globulin 2.5 g/dL (1.7-4.1); Glucose 143 mg/dL (70-100); HEMOLYSIS < 15 (0-50); Potassium 3.8 mmol/L (3.4-5.1); Sodium 135 mmol/L (137-145); Total Protein 5.9 g/dL (6.3-8.2)
[2020-08-31] MEDS: HEPARIN 5,000 UNIT/ML VIAL 5000 UNIT SUBCUT ×2 (08:15→21:10)
[2020-08-31] MEDS: INSULIN LISPRO 100 UNIT/ML 3ML VIAL SUBCUT ×2 (08:15→21:10)
[2020-08-31] MEDS: INSULIN GLARGINE 100 UNIT/ML 3ML PEN 30 UNIT SUBCUT (08:17)
[2020-08-31] MEDS: ACETAMINOPHEN 325 MG TABLET 650 MG PO (08:31)
--- NOTE | 2020-08-31 10:59 | PC.NURSE ---
Assess- Patient is alert and oriented x3 today. He was incontinent of a large amount of loose stool, patient takes lactulose for ammonia levels. He is jaundiced, has some dry skin to lower legs and abdomen with scratches from itching those area's. Patient has a small open area to his buttocks that looks like a possible sheared area. Skin is broken and pink. Allevyn dressing applied to area. His blood sugar this am was 135 and insulin given. We are going to reposition him to his side.
--- NOTE | 2020-08-31 11:00 | PT.IIE ---
Current Diagnoses Acute and subacute hepatic failure without coma (08/30/20) Hepatic failure, unspecified without coma (08/30/20) Medical History (Last Reviewed 08/30/20 @ 13:52 by Victor Hugo Zacarias MD) End stage liver disease Physical Therapy Inpatient Evaluation/Re-Eval M1 PT/OT-IP Prior Functional Status Start: 08/31/20 13:28 Freq: NEEDED Status: Active Protocol: Document 08/31/20 13:00 AB (Rec: 08/31/20 13:39 AB [id number]) Medical Review Prior Functional Status Medical History Reviewed Yes Communication able to make needs known Mobility and Gait pt stated that he was modified independent with mobility but has been getting weaker and has been using a 4WW for ambulation but has been using a w/c for mobility the last 2 weeks Social History Household Members family Living Arrangements Apartment/Condo Number of Floors (Floors) One Floor Number of Stairs To Enter/Railing? no steps to enter Home Environment High Toilet,Walk in Shower Home Equipment Four Wheel Walker,Manual Wheelchair,Shower Seat with Backrest,Hand Held Shower,Grab Bars Near Toilet,Grab Bars In Shower Additional Social History Comment pt lives with his mom and mom will not be assist him at home . M2 PT-IP Current Condition Start: 08/31/20 13:28 Freq: NEEDED Status: Active Protocol: Document 08/31/20 13:00 AB (Rec: 08/31/20 13:39 AB [id number]) Physical Therapy Current Condition Current Condition Evaluation Date 08/31/20 Treatment Diagnosis liver CA; difficulty in walking Onset Date 08/30/20 M3 PT-IP Subjective Start: 08/31/20 13:28 Freq: NEEDED Status: Active Protocol: Document 08/31/20 13:00 AB (Rec: 08/31/20 13:39 AB [email or web address]) Subjective Physical Therapy Visit Type Type Initial Evaluation Visit Start Time 11:00 Visit Stop Time 11:25 Total Visit Minutes 25 Number of SUPERVISOR TYPESETTING Visits 0 Physical Therapy Visit Comments Patient Comments stated that he is feeling better and agreed to try to get out of the bed M4 PT-IP Mobility and Gait Start: 08/31/20 13:28 Freq: NEEDED Status: Active Protocol: Document 08/31/20 13:00 AB (Rec: 08/31/20 13:39 AB [id number]) PT-Bed Mobility Assessment Supine to Sit Supine to Sit Maximum Assistance,2 Person Assistance,Head of Bed Elevated,Bedrails Scooting Scooting to Edge of Bed Maximum Assistance PT-Transfer Assessment Sit to and From Stand Sit to and from Stand Maximum Assistance,1 Person Assistance,2 Person Assistance ,Use of Upper Extremities Equipment Transfer Assistive Device Gait Belt,Front Wheeled Walker Orthotic/Prosthetic Devices or Brace: No Transfers Transfer Destination Chair Transfer Technique Stand Step Pivot Transfer Ability Level of Assist Maximum Assistance,1 Person Assistance,2 Person Assistance ,Use of Upper Extremities Comments Mobility Comments completed supine to sit max A x 2 and max cues with HOB elevated. pt was able to sit on EOB CGA. completes sit to stand max A x 1-2 and max cues and step transfer using fWW max A x 1-2 and max cues. agreed to ambulate and completed ~ 5 ft max A x 1-2 and chair follow using fWW. presents with ataxic gait. pt agreed to stay up on chair chair. positioned on the the chair. call light and table placed within reach. Gait Assessment Gait Gait Assistance Required: Maximum Assistance,1 Person Assist,2 Person Assist Distance (Feet) 5 Assistive Devices Assistive Device Gait Belt,Front Wheeled Walker Orthotic/Prosthetic Devices or Brace: No Gait Deviations General Gait Pattern Antalgic,Decreased Stride Length,Decreased Feet Clearance,Step-to Gait Factors Limiting Gait Function Factors Limiting Gait Function Decreased Activity Tolerance, Decreased Strength,Poor Balance,Poor Safety Awareness PT-Balance Assessment Sitting Balance and Reactions Static Sitting Balance Ability Good Dynamic Sitting Balance Ability Fair Standing Balance and Reactions Static Standing Balance Ability Poor Dynamic Standing Balance Ability Poor Device Used FWW M5 PT-IP Objective Assessments Start: 08/31/20 13:28 Freq: NEEDED Status: Active Protocol: Document 08/31/20 13:00 AB (Rec: 08/31/20 13:39 AB [id number]) Orientation Orientation/Cognition Level of Alertness Alert Orientation Name,Place,Situation Safety Awareness Decreased Safety Awareness Gross Range of Motion Lower Extremity ROM Assessment Within Functional Limits Strength Comments Strength Comments LLE: 3+/5 RLE 4-/5 Muscle Tone Muscle Tone WNL Yes M6 PT-IP Treatment Start: 08/31/20 13:28 Freq: NEEDED Status: Active Protocol: Document 08/31/20 13:00 AB (Rec: 08/31/20 13:39 AB [id number]) Physical Therapy Treatment Education Education Provided Safety M7 PT-IP Assessment and Plan Start: 08/31/20 13:28 Freq: NEEDED Status: Active Protocol: Document 08/31/20 13:00 AB (Rec: 08/31/20 13:39 AB [id number]) PT Summary Assessment and Plan Potential Rehabilitation Potential Fair Status of Condition at Evaluation Evolving Summary Impairments Pain,ROM,Strength,Balance, Coordination,Sensation,Tone, Cognition,Bed Mobility, Transfers,Gait,Activity Tolerance Assessment Summary pt requiring max a x 2 with mobility and presents with decrease activity tolerance affecting mobility and assistance level. pt plans to go on hospice care but is pending. will continue to assess and progress mobility to decrease burden of care at this time. Goals Bed Mobility Goal Minimal Assistance Transfer Goal Minimal Assistance,Four Wheeled Walker Gait Goal Minimal Assistance,Front Wheel Walker Gait Distance 25 Days to Meet Goals 10 Frequency of Treatment Frequency Of Treatment Once a Day Treatment Plan Physical Therapy Treatment Plan Bed Mobility Training,Transfer Training,Gait Training, Therapeutic Exercise,Balance Retraining,Discharge Planning, Hot or Cold Pack,Neuromuscular Re-ed,Coordination Retraining Precautions Other Precautions falls Recommendations To Nursing Amount of Assist Needed 2 Person Assist Discharge Recommendations PT Discharge Recommendations SNF Rehab Transportation Needs at Discharge Wheelchair/Cabulance
--- NOTE | 2020-08-31 12:32 | CM.DPC ---
Addendum entered by CHANI Lucas 08/31/20 15:08: ADD: VÍCTOR met with Nury and Radha from [facility] prior and post bedside assessment with pt. Pt seemed somewhat confused when meeting with staff from [facility] initially stating he was putting on a happy face and told them what pt thought they wanted to hear but clarified with MD that he is agreeable with FELIBERTO at [facility]. Radha and Nury confirm then that they can accept pt but need Hospice to deliver DME and want Hospice services in place at d/c rather than accept pt prior to start of service. They cannot provide transport for pt at d/c but confirm that they do not need any new admission pwk completed by the hospital for acceptance. VÍCTOR called Leslie at [facility] and updated on [facility] acceptance and Leslie states that she will call them to determine what DME to have delivered and will place order for DME tonight for it to be delivered to the facility tomorrow. Leslie states Hospice can open pt to service on Sat09/02/20 and will start coordination with [facility] right now and also will contact pt's mother/DPOA as pt sometimes confused/groggy. VÍCTOR called pt's mother Phuong and updated on above and she is agreeable with d/c plan of [facility] and [facility]. Mother confirms that she does not drive and could not provide transport for pt. Mother also states she has protein drinks, adult diapers, and food stamps for pt and VÍCTOR provided her with contact info for [facility] to determine if they could accept these things to use for pt when admitted. VÍCTOR attempted to contact PT who completed initial assess today to determine mode of transport needed, but pt is currently 2PA and uncertain if he could safely transport via regular taxi. VÍCTOR called Medicaid transport and confirmed he has transportation benefits and may need to schedule Medicaid cabulance at d/c. Plan: SW to follow closely tomorrow with [facility] and [facility] to confirm DME delivery tomorrow and likely d/c Saturday to [facility] with [facility] to open same day. CHANI Lucas Original Note: DCP Cont: SW received a call from [facility] and [facility] Gibson [phone] requesting a call after [facility] completes bedside assessment today so that she can finalize the assessment once accepting facility found. SW called Nury at [facility] [phone] and confirmed she and her coworker Radha will assess pt bedside today early afternoon. SW updated RN on bedside assessment today and likely questions from staff at [facility]. Plan: SW to follow closely with [facility] Nury/Radha towards determining if they can accept and updating [facility] regarding determination. SW to follow up with [facility] once LTC facility found so that they can start pt on service for his stage IV lung CA. CHANI Lucas
--- NOTE | 2020-08-31 18:09 | PM.PN.1 ---
Subjective Subjective Date Patient Seen: 08/31/20 Time Patient Seen: 08:00 Interval history: Today he is much more alert. Has been having frequent bowel movements with the lactulose. No longer feels crazy. He has pain in his tailbone, no other complaints. Exam Vital Signs (past 8 hours): - 08/31/20 10:58 08/31/20 15:53 08/31/20 16:50 Temperature 97.8 F 97.4 F L Pulse Rate 78 103 H Respiratory Rate 15 18 Blood Pressure 116/72 95/56 L Pulse Oximetry 100 99 95 Oxygen Delivery Method Room Air Oxygen Flow Rate 0 Narrative Exam Narrative: GEN: chronically ill appearing male, awake and alert HEENT: Moist mucous membranes, PERRL NECK: no JVD, trachea midline HEART: Regular rate and rhythm without murmur LUNGS:Lungs clear to auscultation, no wheezes, rales, crackles ABD:bowel sounds normal, soft, non-tender, no hepatosplenomegaly MSK: warm and well perfused with no edema, spontaneously moving all extremities NEURO: cranial nerves intact, globally weak, awake and alert SKIN: no rash noted Objective Labs Result Diagrams: 08/31/20 06:37 08/31/20 06:37 Labs: Laboratory Results - last 24 hr 08/31/20 08/31/20 06:37 06:37 WBC 4.1 L RBC 2.57 L Hgb 8.4 L Hct 24.0 L MCV 93.3 MCH 32.6 MCHC 35.0 RDW 15.1 H Plt Count 107 L Neut % (Auto) 58.3 Lymph % (Auto) 19.7 L [place] % (Auto) 17.6 H Eos % (Auto) 3.1 Baso % (Auto) 1.3 Neut # (Auto) 2400 Lymph # (Auto) 800 L [place] # (Auto) 700 Eos # (Auto) 100 Baso # (Auto) 100 Sodium 135 L Potassium 3.8 Chloride 105 Carbon Dioxide 22 BUN 64 H Creatinine 1.60 H Estimated GFR 45.6 L BUN/Creatinine Ratio 40.0 H Glucose 143 H Calcium 9.1 Total Bilirubin 1.8 H AST 40 ALT 26 Alkaline Phosphatase 83 Total Protein 5.9 L Albumin 3.4 L Globulin 2.5 Albumin/Globulin Ratio 1.4 [facility] Medical History End stage liver disease Social History household members: family Smoking Status: Never smoker alcohol intake: former Assessment & Plan Assessment & Plan narrative: Mr. Ramires is a 50M with PMH of liver cancer, decopensated cirrhosis presenting from home with confusion secondary to hepatic encephalopathy 1. Acute hepatic encephalopathy -per mother, patient has stopped taking lactulose consistenly -no other clear source of infection, has normal wbc, procalcitonin mildly elevated, gallbladder wall mildly thickened but to murphys sign so likely secondary to edema, has small amount of ascites that is unable to be tapped for a para, ua negative -placed on zosyn overnight for possible intra-abdominal infection, but think this is less likely, but will continue for now for possible sbp, less likely cholecystitis -aggressive lactulose improved mental status dramatically, will decreased to TID, and target 2-3 BMs daily 2. 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, decompensated cirrhosis with ascites and encephalopathy -patient previously on liver transplant list per mother, however taken off one month ago due to be too sick, patient has since declined and both agree with hospice as goal of care -discussed with mother and patient difficult to care for at home, patient and mother agree patient wants to be no code, and placed on hospice -patient does get twice weekly jody at [facility] for symptom control, can continue if able with hospice -initial CT scan did indicate large volume ascities, para ordered and per radiologist ascites is too small to tap 3. Type 2 Diabetes in insulin -on 40U insulin at home -ordered for 30U here in the hospital while poorly eating -insulin sliding scale ordered 4. Pancytopenia -secondary to cirrhosis -no need for transfusion at this time 5. Hyponatremia, resolved -secondary to cirrhosis -did get IV fluids with saline, will stop for now and given 25% albumin as needed 6. Elevated creatinine -presumably CHON from decompensated cirrhosis, possibly HRS -will order IV albumin to see if this improves renal function, day 1 08/30 got 75g albumin, plan for day 2 75g albumin today CODE: DNR, DNI Proxy: Mother, Phuong Ramires DVT ppx: Heparin SC DIET: diabetic, low sodium DISPO: patient is stable for discharge today, discharge orders placed and completed. Per case management today they said patient could be accepted at [facility] today, fabricio went to see why patient still in hospital despite discharge orders and was told that patient was not going to be discharged. At this point patient case manager had all left and none spoke to me why discharge arrangements were not completed.
[2020-08-31] MEDS: ALBUMIN HUMAN IV (18:30)
[2020-09-01 00:22] VITALS: BP 126/74; PULSE 98; RESP 18; TEMP 36.9; O2SAT 98
[2020-09-01 00:40] VITALS: O2SAT 98
[2020-09-01] MEDS: PIPERACILLIN/TAZO 3.375 GM in SODIUM CHLORIDE 0.9% 100 ML 25 ML IV ×2 (00:48→09:34)
[2020-09-01] MEDS: ACETAMINOPHEN 325 MG TABLET 650 MG PO (05:17)
[2020-09-01] MEDS: SODIUM CHLORIDE 0.9% FLUSH 10 ML IV ×3 (05:17→20:45)
[2020-09-01 08:13] VITALS: O2SAT 97
[2020-09-01 09:05] VITALS: BP 118/70; PULSE 89; RESP 16; TEMP 36.6; O2SAT 99
[2020-09-01] MEDS: HEPARIN 5,000 UNIT/ML VIAL 5000 UNIT SUBCUT ×2 (09:21→21:01)
[2020-09-01] MEDS: INSULIN GLARGINE 100 UNIT/ML 3ML PEN 30 UNIT SUBCUT (09:31)
[2020-09-01] MEDS: LACTULOSE 20 GM/30 ML SOLUTION 30 GM PO ×3 (09:33→21:01)
--- NOTE | 2020-09-01 11:49 | PT.IPTN ---
Current Diagnoses Acute and subacute hepatic failure without coma (08/30/20) Hepatic failure, unspecified without coma (08/30/20) Physical Therapy Treatment Note M2 PT-IP Current Condition Start: 08/31/20 13:28 Freq: NEEDED Status: Active Protocol: Document 08/31/20 13:00 AB (Rec: 08/31/20 13:39 AB [id number]) Physical Therapy Current Condition Current Condition Evaluation Date 08/31/20 Treatment Diagnosis liver CA; difficulty in walking Onset Date 08/30/20 M3 PT-IP Subjective Start: 08/31/20 13:28 Freq: NEEDED Status: Active Protocol: Document 09/01/20 11:32 CLB (Rec: 09/01/20 13:38 CLB [id number]) Subjective Physical Therapy Visit Type Type Treatment Note Visit Start Time 11:32 Visit Stop Time 11:49 Total Visit Minutes 17 Notes RN assisted with IV pole during ambulation. Number of HEALTH INFORMATION ADMINISTRATOR Visits 1 Physical Therapy Visit Comments Patient Comments Pt states they want me to go somewhere and just . M4 PT-IP Mobility and Gait Start: 08/31/20 13:28 Freq: NEEDED Status: Active Protocol: Document 09/01/20 11:32 CLB (Rec: 09/01/20 13:38 CLB [id number]) PT-Bed Mobility Assessment Supine to Sit Supine to Sit Moderate Assistance,1 Person Assistance,Bedrails Scooting Scooting to Edge of Bed Contact Guard Assistance PT-Transfer Assessment Sit to and From Stand Sit to and from Stand Minimal Assistance,Moderate Assistance,1 Person Assistance ,Use of Upper Extremities Equipment Transfer Assistive Device Gait Belt,Front Wheeled Walker Orthotic/Prosthetic Devices or Brace: No Transfers Transfer Destination Chair Transfer Technique Stand Step Pivot Transfer Ability Level of Assist Minimal Assistance,1 Person Assistance,Use of Upper Extremities Comments Mobility Comments Pt requiring Mod A from SL> sitting then Min A to stand from bed. Pt transferred to chair requiring Min A. Pt sat and then felt he could stand and ambulate. Pt stood from chair Mod A with cues for hand placement. Pt ambulating requiring Min A with Max cues to stay inside walker and watching obstacles in [place] as pt veers to left bumping wall with walker. Pt returned to room sitting in chair with cues for hand placement and Min A to slow descent. Left pt in chair with all needs within reach and chair alarm on, RN present. Gait Assessment Gait Gait Assistance Required: Minimum Assistance,1 Person Assist Distance (Feet) 210 Able to Maintain Weight Bearing Status Yes During Gait Assistive Devices Orthotic/Prosthetic Devices or Brace: No Gait Deviations General Gait Pattern Antalgic,Decreased Stride Length,Decreased Feet Clearance Factors Limiting Gait Function Factors Limiting Gait Function Decreased Activity Tolerance, Decreased Strength,Poor Balance,Poor Safety Awareness M5 PT-IP Objective Assessments Start: 08/31/20 13:28 Freq: NEEDED Status: Active Protocol: Document 08/31/20 13:00 AB (Rec: 08/31/20 13:39 AB [id number]) Orientation Orientation/Cognition Level of Alertness Alert Orientation Name,Place,Situation Safety Awareness Decreased Safety Awareness Gross Range of Motion Lower Extremity ROM Assessment Within Functional Limits Strength Comments Strength Comments LLE: 3+/5 RLE 4-/5 Muscle Tone Muscle Tone WNL Yes M6 PT-IP Treatment Start: 08/31/20 13:28 Freq: NEEDED Status: Active Protocol: Document 09/01/20 11:32 CLB (Rec: 09/01/20 13:38 CLB [id number]) Physical Therapy Treatment Education Education Provided Safety Other Treatments Other Treatment Performed standing marches M7 PT-IP Assessment and Plan Start: 08/31/20 13:28 Freq: NEEDED Status: Active Protocol: Document 09/01/20 11:32 CLB (Rec: 09/01/20 13:38 CLB [id number]) PT Summary Assessment and Plan Potential Rehabilitation Potential Fair Status of Condition at Evaluation Evolving Summary Impairments Pain,ROM,Strength,Balance, Coordination,Sensation,Tone, Cognition,Bed Mobility, Transfers,Gait,Activity Tolerance Progress Towards Goals Progressing Toward Goals Assessment Summary Pt improving with all mobility , pt requiring Mod A for supine-sit, Min-Mod A for sit- stand and Min A with max cues for safety during ambulation. Pt able to increase gait distance to ~210ft w/FWW/Min A . Goals Bed Mobility Goal Minimal Assistance Transfer Goal Minimal Assistance,Four Wheeled Walker Gait Goal Minimal Assistance,Front Wheel Walker Gait Distance 25 Days to Meet Goals 10 Frequency of Treatment Frequency Of Treatment Once a Day Treatment Plan Physical Therapy Treatment Plan Bed Mobility Training,Transfer Training,Gait Training, Therapeutic Exercise,Balance Retraining,Discharge Planning, Hot or Cold Pack,Neuromuscular Re-ed,Coordination Retraining Precautions Other Precautions falls Recommendations To Nursing Amount of Assist Needed 2 Person Assist Discharge Recommendations PT Discharge Recommendations SNF Rehab Transportation Needs at Discharge Wheelchair/Cabulance
[2020-09-01] MEDS: INSULIN LISPRO 100 UNIT/ML 3ML VIAL SUBCUT ×3 (12:34→21:02)
[2020-09-01 16:15] VITALS: O2SAT 96
[2020-09-01 16:17] VITALS: BP 118/71; PULSE 91; RESP 18; TEMP 37.4; O2SAT 98
--- NOTE | 2020-09-01 16:18 | CM.DPNOTE ---
DCP Note Contacted Radha at [facility], clarified again that patient unable to admit today, hospital bed is not being delivered until after 1500 and there is no admission nurse working this afternoon/evening. Contacted [facility] transport and w/the assist from [facility] transport team, w/c van was secured through [employer] for p/u tomorrow at 1200. Updated Radha at [facility], was unable to update patient's mom d/t triage/caseload needs. Will have CM f/u tomorrow AM as coordination continues. Dr Bedolla updated JW
--- NOTE | 2020-09-01 16:30 | PM.PN.1 ---
Subjective Subjective Interval history: Patient is sitting up in a chair without any content distress. He denies any diarrhea at this time. Patient does have an indwelling Page catheter. Exam Vital Signs (past 8 hours): - 09/01/20 09:05 09/01/20 16:15 09/01/20 16:17 Temperature 98 F 99.3 F Pulse Rate 89 91 H Respiratory Rate 16 18 Blood Pressure 118/70 118/71 Pulse Oximetry 99 96 98 Oxygen Delivery Method Room Air Oxygen Flow Rate 0 Narrative Exam Narrative: Pleasant gentleman sitting in a chair in no obvious distress Chest Other: Lungs: Clear to auscultation Cardio Other: Cardiac exam: Regular rate and rhythm normal S1-S2 GI Other: Abdomen soft nontender nondistended Extrem Other: Extremities: No edema Objective Labs Result Diagrams: 08/31/20 06:37 08/31/20 06:37 [facility] Medical History End stage liver disease Social History household members: family Smoking Status: Never smoker alcohol intake: former Assessment & Plan Assessment & Plan narrative: Acute hepatic encephalopathy -per mother, patient has stopped taking lactulose consistenly -no other clear source of infection, has normal wbc, procalcitonin mildly elevated, gallbladder wall mildly thickened but to murphys sign so likely secondary to edema, has small amount of ascites that is unable to be tapped for a para, ua negative -placed on zosyn overnight for possible intra-abdominal infection, but think this is less likely, but will continue for now for possible sbp, less likely cholecystitis -aggressive lactulose improved mental status dramatically, will decreased to TID, and target 2-3 BMs daily -discontinue IV antibiotics, 2. 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, decompensated cirrhosis with ascites and encephalopathy -patient previously on liver transplant list per mother, however taken off one month ago due to be too sick, patient has since declined and both agree with hospice as goal of care -discussed with mother and patient difficult to care for at home, patient and mother agree patient wants to be no code, and placed on hospice -patient does get twice weekly jody at [facility] for symptom control, can continue if able with hospice -initial CT scan did indicate large volume ascities, para ordered and per radiologist ascites is too small to tap -no need for paracentesis at this time 3. Type 2 Diabetes in insulin -on 40U insulin at home -ordered for 30U here in the hospital while poorly eating -insulin sliding scale ordered -blood sugars well controlled 4. Pancytopenia -secondary to cirrhosis -no need for transfusion at this time 5. Hyponatremia, resolved -secondary to cirrhosis -did get IV fluids with saline, will stop for now and given 25% albumin as needed 6. Elevated creatinine -presumably CHON from decompensated cirrhosis, possibly HRS -will order IV albumin to see if this improves renal function, day 1 08/30 got 75g albumin, plan for day 2 75g albumin today -will continue to monitor Plans are for the patient to be discharged to assisted living tomorrow with hospice. I have utilized all available immediate resources to obtain update or review the patient's current medications
[2020-09-02] VITALS: BP 110/65; PULSE 93; RESP 20; TEMP 36.4; O2SAT 99
[2020-09-02 00:49] VITALS: O2SAT 98
[2020-09-02] MEDS: INSULIN LISPRO 100 UNIT/ML 3ML VIAL SUBCUT ×2 (02:35→09:53)
[2020-09-02 08:05] VITALS: BP 113/71; PULSE 89; RESP 16; TEMP 36.4; O2SAT 98
--- NOTE | 2020-09-02 09:43 | PT.IPTN ---
Current Diagnoses Acute and subacute hepatic failure without coma (08/30/20) Hepatic failure, unspecified without coma (08/30/20) Physical Therapy Treatment Note M2 PT-IP Current Condition Start: 08/31/20 13:28 Freq: NEEDED Status: Active Protocol: Document 08/31/20 13:00 AB (Rec: 08/31/20 13:39 AB [id number]) Physical Therapy Current Condition Current Condition Evaluation Date 08/31/20 Treatment Diagnosis liver CA; difficulty in walking Onset Date 08/30/20 M3 PT-IP Subjective Start: 08/31/20 13:28 Freq: NEEDED Status: Active Protocol: Document 09/02/20 09:24 CLB (Rec: 09/02/20 12:28 CLB [id number]) Subjective Physical Therapy Visit Type Type Treatment Note Visit Start Time 09:24 Visit Stop Time 09:43 Total Visit Minutes 19 Number of MANAGER OF PATIENT Visits 2 Physical Therapy Visit Comments Patient Comments Pt willing to ambulate. M4 PT-IP Mobility and Gait Start: 08/31/20 13:28 Freq: NEEDED Status: Active Protocol: Document 09/02/20 09:24 CLB (Rec: 09/02/20 12:28 CLB [id number]) PT-Bed Mobility Assessment Supine to Sit Supine to Sit Moderate Assistance,1 Person Assistance,Bedrails PT-Transfer Assessment Sit to and From Stand Sit to and from Stand Moderate Assistance,1 Person Assistance,Use of Upper Extremities Equipment Transfer Assistive Device Gait Belt,Front Wheeled Walker Orthotic/Prosthetic Devices or Brace: No Transfers Transfer Destination Chair Transfer Technique Stand Step Pivot Transfer Ability Level of Assist Minimal Assistance,1 Person Assistance,Use of Upper Extremities Comments Mobility Comments Pt left in chair with alarm on and all needs within reach. Gait Assessment Gait Gait Assistance Required: Contact Guard Assist,1 Person Assist Distance (Feet) 210 Able to Maintain Weight Bearing Status Yes During Gait Assistive Devices Assistive Device Gait Belt,Front Wheeled Walker Orthotic/Prosthetic Devices or Brace: No Gait Deviations General Gait Pattern Antalgic,Decreased Stride Length,Decreased Feet Clearance Factors Limiting Gait Function Factors Limiting Gait Function Decreased Activity Tolerance, Decreased Strength,Poor Balance,Poor Safety Awareness Comments Gait Comments Pt ambulates w/FWW/CGA with three standing rest breaks. M5 PT-IP Objective Assessments Start: 08/31/20 13:28 Freq: NEEDED Status: Active Protocol: Document 08/31/20 13:00 AB (Rec: 08/31/20 13:39 AB [id number]) Orientation Orientation/Cognition Level of Alertness Alert Orientation Name,Place,Situation Safety Awareness Decreased Safety Awareness Gross Range of Motion Lower Extremity ROM Assessment Within Functional Limits Strength Comments Strength Comments LLE: 3+/5 RLE 4-/5 Muscle Tone Muscle Tone WNL Yes M6 PT-IP Treatment Start: 08/31/20 13:28 Freq: NEEDED Status: Active Protocol: Document 09/01/20 11:32 CLB (Rec: 09/01/20 13:38 CLB [id number]) Physical Therapy Treatment Education Education Provided Safety Other Treatments Other Treatment Performed standing marches M7 PT-IP Assessment and Plan Start: 08/31/20 13:28 Freq: NEEDED Status: Active Protocol: Document 09/02/20 09:24 CLB (Rec: 09/02/20 12:28 CLB [id number]) PT Summary Assessment and Plan Potential Rehabilitation Potential Fair Status of Condition at Evaluation Evolving Summary Impairments Pain,ROM,Strength,Balance, Coordination,Sensation,Tone, Cognition,Bed Mobility, Transfers,Gait,Activity Tolerance Progress Towards Goals Progressing Toward Goals Assessment Summary Pt continues to require Mod A for bed mobility and sit-stand . Pt with improved safety awareness during gait of ~ 210ft. Pt required three standing rest breaks during gait. Goals Bed Mobility Goal Minimal Assistance Transfer Goal Minimal Assistance,Four Wheeled Walker Gait Goal Minimal Assistance,Front Wheel Walker Gait Distance 25 Days to Meet Goals 10 Frequency of Treatment Frequency Of Treatment Once a Day Treatment Plan Physical Therapy Treatment Plan Bed Mobility Training,Transfer Training,Gait Training, Therapeutic Exercise,Balance Retraining,Discharge Planning, Hot or Cold Pack,Neuromuscular Re-ed,Coordination Retraining Precautions Other Precautions falls Recommendations To Nursing Amount of Assist Needed 1 Person Assist Discharge Recommendations PT Discharge Recommendations SNF Rehab Transportation Needs at Discharge Wheelchair/Cabulance
[2020-09-02] MEDS: LACTULOSE 20 GM/30 ML SOLUTION 30 GM PO (09:53)
[2020-09-02] MEDS: HEPARIN 5,000 UNIT/ML VIAL 5000 UNIT SUBCUT (09:53)
[2020-09-02] MEDS: INSULIN GLARGINE 100 UNIT/ML 3ML PEN 30 UNIT SUBCUT (09:54)
--- NOTE | 2020-09-02 10:49 | CM.DPC ---
DCP: continued: pt today with a d/c to [facility]. Have spoken now with Dr. Bedolla who has updated the d/c specific orders. These are faxed along with last evening's MD progress note to : fax [phone] Have talked with pt and his mother, both of whom state they are pleased with the d/c plan for today. Radha at confirms all is in place for pt and [facility] will be out today at 4PM to fully open pt to service. [employer] w/c transport was set up yesterday for a picking machine operator today at noon. RN Paola Mariee is updated. She will follow up with Dr. Bedolla re the sy catheter (per pt placed in the outpt setting by urology due to inability to void.) Just need this added to the d/c orders for today.
--- NOTE | 2020-09-02 13:43 | PC.NURSE ---
Transfer. Pt is transfering to [facility] in [place]. Report called to Radha admitting nurse at facility. Reviewed hospital course. Pt is terminal and is aware and has decided on hospice. Wants to be comfortable as poss. Oriented today. Can recall how sick he was when he got admitted to hospital. Discussed adl's and pt's skin issues. Questions answered. Pt transfered to facility via SS arrangements.
--- NOTE | 2020-09-02 18:02 | PM.DS.1 ---
History of Present Illness History of Present Illness Chief complaint: Live [place], unable to care for self Narrative: Mr. Ramires is a 50M with liver cancer, cirrhosis that is decompensated with refractory ascites needing twice weekly large volume paracentesis, hepatic encephalopathy diabetes who is coming in with multiple issues, but primarily because his family is unable to care for him. History is obtained from patient and mother. Patient has been chronically declining, getting weaker, getting more confused, not eating well, refusing to take his medications (such as lactulose). His mother is unable to care for him. She has been discussing with social security specialist about getting patient placed and on hospice. The patient is encephalopathic, and states that he came in because he was feeling crazy. Otherwise he does not respond affirmatively or negatively to review of systems. He denies pain except for in his tailbone. In the ED he was noted to have borderline tachycardia. WBC 5.4, Hgb 9.1, plts 117. UA negative for infection. Na 126, creqatinine 1.68. Ammonia 102. Lipase 899. CT abdomen showed a cirrhotic liver and portal hypertension, gallbladder wall is mildly thickened, large amount of ascites was noted. CT head showed no acute process. He was given lactulose, zosyn, and IV fluids and admitted for further treatment. Discharge Providers Provider Date of admission: 08/30/20 01:08 Discharge Date: 09/02/20 Primary care physician: Ge Ortiz MD Consults: 08/30/20 02:37 Consult to General Surgery Urgent Comment: Consulting Provider: Buddy Norris Reason for consultation: cholecystitis, cholelithiasis Has provider been notified: Yes 08/30/20 09:41 Consult to Hospice Referral Routine Comment: 08/30/20 11:53 Consult to Physical Therapy Evaluate & Treat Comment: Physician Instructions: Evaluate and Treat Discharge provider: Marisa Bedolla MD Summary Hospital Course Discharge Diagnosis: 1. Hepatic Encephalopathy 2. Hepatocellar Carcinoma 3. Type 2 Diabets 4. pancytopenia 5. hyponatreima 6 Acute Renal Failure Hospital Course: patient was admitted to the hospital for decompensated cirrhosis. He was treated with antibiotics for presumed SBP. Patient had improvement in his mental status. His family decided that patient would transition to hospice as he was no longer a liver transplant candidate. With regular lactulose he improved greatly. He did not require paracentesis in the hospital. Assisted living was arranged and the patient was discharged under the care of hospice Status at Discharge Functional status at discharge: independent ambulation Overall status at discharge: patient is back to baseline Exam Vital Signs (past 8 hours): Oxygen Delivery Method Room Air Oxygen Flow Rate 0 Narrative Exam Narrative: ill appearing male in NO acute distress Chest Other: lungs : decreased breath sounds but clear to auscultation GI Other: distended: soft/ non tender Other: sy catheter in place Extrem Other: 2+ edema Objective Labs Result Diagrams: 08/31/20 06:37 08/31/20 06:37 [facility] Medical History End stage liver disease Social History household members: family Smoking Status: Never smoker alcohol intake: former Discharge Assessment & Plan Assessment and Plan Assessment: 1. Acute Hepatic encephalopathy 2. Hepatocelluar carcinoma 3. TYpe 2 Diabetes 4. Ascites 5. Pancytopenia 6. Acute Renal Failure 7. Hyponatremia Plan of Treatment: home with hospice. Medications as prescribed above. Discharge Plan Discharge Plan Patient Disposition: Assisted Living Other facility: with hospice to start 09/01 Consult as needed: Dental, Hearing, Mental health, Podiatry and Vision Provider Discharge Comment: Mr. Ramires was admitted with confusion due to hepatic encephalopathy. He also has been difficult to care for by his mother. He had previously been on the liver transplant, but was taken off for being too sick. He has liver cancer and alcoholic cirrhosis. He gets twice weekly paracentesis at [facility]. He will be discharged with hospice to assisted living per his and his mother's wishes. Hospice to take over, but if possible he can continue twice weekly paracentesis for symptom control. He can continue lactulose 3x a day and adjust as needed to have 2 bowel movements daily to prevent confusion. He is given five days more of antibiotics as it is possible he had an infection in his abdomen. He was on xifaxin at home, but did not need this in the hospital. He could be restarted on this xifaxin 550mg BID in the future to help control his encephalopathy if needed. Discharge orders & Medications Discharge Orders: Discharge (Order); Ordered 08/31/20 Ordered By: Victor Hugo Zacarias Prescriptions: New lactulose 20 gram/30 mL Solution 30 g PO TID Qty: 1200 RF: 0 levofloxacin 500 mg tablet 500 mg PO DAILY Qty: 5 RF: 0 Lantus Solostar U-100 Insulin 100 unit/mL (3 mL) Insulin Pen 30 unit SUBCUT DAILY Qty: 15 RF: 0 Continued bupropion HCl 150 mg Tablet Sustained-Release 12 Hr 150 mg PO BID RF: 0 venlafaxine 75 mg capsule,extended release 24hr 75 mg PO DAILY RF: 0 tamsulosin 0.4 mg capsule 0.4 mg PO DAILY RF: 0 albuterol sulfate 90 mcg/actuation Hfa Aerosol Inhaler 1 - 2 puff INHALATION Q4HR PRN (Reason: Asthma) RF: 0 Discontinued insulin regular human 100 unit/mL Solution 1 sliding scale dose SUBCUT USEASDIRECTD RF: 0 insulin glargine 100 unit/mL Cartridge 65 unit SUBCUT DAILY RF: 0 Xifaxan 550 mg tablet 550 mg PO BID RF: 0 Follow up/Referrals: Ge Ortiz MD [Primary Care Provider] - Diet/Activity/Treatments Diet: Low-sodium Catheter: 2-way Sy Catheter comment: chronic indwelling sy per urology Visit Report/Discharge Packet Instructions: DI for Cirrhosis, DI for Liver Cancer, DI for Encephalitis Discharge Data Primary Care Provider: Ge Ortiz
== END 2020-09-02 12:30 | disposition hospice, home (50) | DRG 279 ==
LOC: ED 08-30 00:07 → AC 08-30 01:09
PROVIDERS: Internal Medicine; Admitting Provider Family Medicine; Emergency Provider Emergency Medicine; PCP Internal Medicine; Referring Provider Emergency Medicine; Visit Provider Family Medicine
DX: K72.00 Acute and subacute hepatic failure without coma (principal); R18.8 Other ascites; K65.2 Spontaneous bacterial peritonitis; K72.90 Hepatic failure, unspecified without coma; D61.818 Other pancytopenia; E11.9 Type 2 diabetes mellitus without complications; C22.8 Malignant neoplasm of liver, primary, unspecified as to type; N17.9 Acute kidney failure, unspecified; K74.60 Unspecified cirrhosis of liver; E87.1 Hypo-osmolality and hyponatremia; Z79.4 Long term (current) use of insulin; Z20.822 Contact with and (suspected) exposure to COVID-19
CPT/HCPCS: 36415; 70450; 74177; 76705; 80048; 80053; 80320; 81001; 82140; 82962; 83690; 84145; 85025; 85027; 85610; 87635; 93005; 93010; 96365; 97116; 97162; 99284; C9803; J1644; J1815; J2405; J2543; P9041; Q9967

== ENCOUNTER 2020-09-11 21:14 | Emergency (ER) | payer OTHER, MEDICAID, SELFPAY ==
[2020-08-30 02:10] VITALS: BMI 26.5
[2020-09-11 21:18] VITALS: PULSE 138; RESP 18; TEMP 36.3; O2SAT 99
--- NOTE | 2020-09-11 21:22 | ED.FALL ---
HPI - Fall General Chief Complaint: Fall Stated Complaint: GLF Time Seen by Provider: 09/11/20 21:19 Source: patient and EMS Mode of arrival: EMS History of Present Illness HPI Narrative: 50-year-old male with history of diabetes and liver cancer presents with a chief complaint of low back pain after sliding out of bed onto the ground and landing on his tailbone. He denies head or neck pain. He denies N/V/D or weakness. He has no new abdominal pain, fever, or chills. He has pain in his sacral and tailbone area. He denies loss of control of bowel or bladder. He denies saddle anesthesia. He denies any radiation down into his legs. He denies lower extremity weakness, numbness or tingling Related Data Home Medications Medication Instructions Recorded Confirmed albuterol sulfate 90 mcg/actuation 1 - 2 puff INHALATION Q4HR PRN 08/30/20 08/30/20 aerosol inhaler bupropion HCl 150 mg tablet,12 hr 150 mg PO BID 08/30/20 08/30/20 sustained-release tamsulosin 0.4 mg capsule 0.4 mg PO DAILY 08/30/20 08/30/20 venlafaxine 75 mg capsule,extended 75 mg PO DAILY 08/30/20 08/30/20 release 24 hr Previous Rx's Medication Instructions Recorded insulin glargine 100 unit/mL (3 30 unit SUBCUT DAILY #15 ml 08/31/20 mL) subcutaneous pen (Lantus Solostar U-100 Insulin) lactulose 20 gram/30 mL oral 30 g PO TID #1200 ml 08/31/20 solution levofloxacin 500 mg tablet 500 mg PO DAILY #5 tab 08/31/20 Allergies Allergy/AdvReac Type Severity Reaction Status Date / Time cantaloupe Allergy Severe Anaphylaxis Verified 08/29/20 19:03 melon Allergy Severe Anaphylaxis Verified 08/29/20 19:03 lisinopril AdvReac Unknown Verified 08/29/20 19:03 Review of Systems Review of Systems Narrative: GENERAL: Denies chills, fatigue, malaise, fever, sweats. HEENT: Denies sinus pain, ear pain, sore throat, difficulty swallowing, dizziness. RESPIRATORY: Denies dyspnea, cough, wheezing, hemoptysis, sputum. CARDIOVASCULAR: Denies chest pain, palpitations, orthopnea, edema, GASTROINTESTINAL: Denies nausea, vomiting, abdominal pain, diarrhea, constipation, melena. : Denies dysuria, frequency, incontinence, hematuria, urinary retention. MUSCULOSKELETAL: See HPI SKIN: Denies rash, skin lesions, or other NEUROLOGIC: Denies weakness, headache, numbness, change in speech, confusion, seizures, incoordination. PSYCHIATRIC: No concerning psychosocial issues. 12 point review of systems is negative except for those stated above Patient History Medical History End stage liver disease Social History household members: family Smoking Status: Never smoker alcohol intake: former Smoking Status: Never smoker alcohol intake frequency: other Substance Use Type: does not use Exam Narrative Exam Narrative: GENERAL: [50] year old patient appears stated age. Chronically ill but in no obvious acute distress, complaining of sacral pain HEAD: Atraumatic. Normocephalic. EYES: Pupils equal round and reactive. Extraocular motions intact. No scleral icterus. No injection or drainage. ENT: Nose without bleeding, purulent drainage. Throat without erythema, tonsillar hypertrophy or exudate. Airway patent. NECK: Trachea midline. Non tender CARDIOVASCULAR: Regular rate and rhythm without murmurs, gallops, or rubs. RESPIRATORY: Clear to auscultation. Breath sounds equal bilaterally. No wheezes, rales, or rhonchi. GASTROINTESTINAL: Abdomen soft, non-tender, nondistended. EXTREMITIES: No edema or joint tenderness. BACK: No saddle anesthesia or lower extremity weakness, patient is tender to palpation along the sacrum and coccyx, perhaps tender on the lumbar, no crepitance, step-offs, swelling or induration NEURO: AOx3. SKIN: No rash or erythema of visible areas Initial Vital Signs Initial Vital Signs: Vital Signs Temperature 97.4 F L 09/11/20 21:18 Pulse Rate 138 H 09/11/20 21:18 Respiratory Rate 18 09/11/20 21:18 Pulse Oximetry 99 09/11/20 21:18 Course Orders Ordered: ED Orders 09/11/20 21:23 XR lumbar spine 2-3V Stat XR sacrum coccyx min 2V Stat Discontinued Medications Lidocaine (Lidocaine Patch 1 Each Adh..Patch) 1 each TOP NOW ONE Stop: 09/11/20 22:23 Last Admin: 09/11/20 22:34 Dose: 1 each Documented by: [email or web address] Vital Signs Vital signs: Vital Signs - 8 hr 09/11/20 21:18 09/11/20 21:30 09/11/20 22:38 Temperature 97.4 F L Pulse Rate 138 H 93 H 90 Respiratory Rate 18 16 16 Blood Pressure 129/77 124/71 Pulse Oximetry 99 99 100 MDM - Fall Imaging Data L Spine: Radiologist's Impression: [address] [id number] ReportSigned Patient: Phill Ramires [facility]#: [id number]: 1970Acct:[id number]/Sex: 50 / MDate of Service: 09/11/20Loc: EDAccession Number: [id number] Procedure: XR lumbar spine 2-3V Ordering Provider: Sher Yousif D.O. PROCEDURE: XR LUMBAR SPINE 2-3V INDICATIONS: fall with low back / sacral pain TECHNIQUE: 3 views of the lumbar spine were acquired. COMPARISON: None. FINDINGS: Bones: Five [id number] vertebrae are present. There is normal bony alignment. No vertebral body compression fractures. No suspicious bony lesions. Mild disc space narrowing is seen at the L4-5 and L5-S1 levels with mild degenerative endplate changes. Facet hypertrophy is seen at L3-4 through L5-S1. Soft tissues: Overlying bowel gas pattern is normal. No suspicious soft tissue calcifications. IMPRESSION: No acute lumbar spine compression fracture. Mild multilevel spondylosis. Dictated by: Joseluis Robert M.D. on 09/11/2020 at 22:12 Approved by: Joseluis Robert M.D. on 09/11/2020 at 22:13 Sacral Xray: Radiologist's Impression: Phill Ramires 50 M [address] [id number] ReportSigned Patient: Phill Ramires SMR#: [id number]: 1970Acct:[id number]/Sex: 50 / MDate of Service: 09/11/20Loc: EDAccession Number: [id number] Procedure: XR sacrum coccyx min 2V Ordering Provider: Sher Yousif D.O. PROCEDURE: XR SACRUM COCCYX MIN 2V INDICATIONS: fall with low back and sacral pain TECHNIQUE: 3 views of the sacrum and coccyx acquired. COMPARISON: None. FINDINGS: Bones: No acute fractures or dislocations. No suspicious bony lesions. Disc space narrowing and degenerative endplate changes are seen in the lower lumbar spine. Facet hypertrophy is also noted in the lower lumbar spine. Soft tissues: Visualized bowel gas pattern is normal. No suspicious soft tissue densities. IMPRESSION: No acute displaced sacrococcygeal fracture identified. If clinical suspicion and/or symptoms persist, additional imaging with repeat plain films, or advanced imaging (e.g. CT, MRI) may be helpful for further assessment. Dictated by: Joseluis Robert M.D. on 09/11/2020 at 22:10 Approved by: Joseluis Robert M.D. on 09/11/2020 at 22:12 Discharge Plan Departure Patient Disposition: Home Clinical Impression: Sacral pain Instructions: DI for Coccyx Fracture Activity Restrictions/Additional Instructions: *You have been diagnosed with [sacral and tailbone pain, physical exam and x-rays are very reassuring] *What to do: *Please continue to take your regular medications as directed. [ ] New medication prescriptions sent to your pharmacy: [ ] [ ] New medication written as a paper prescription [x ] No new medications given *Please follow up with your primary care provider in 2-3 days, call for an appointment. Let them know you were seen in the Emergency Department and that we ask that you be seen in follow up. We will electronically transmit a record of today's note if your PCP is in our system *If you do not have a primary care provider please contact the [facility] Resource line at [phone]. They will ask some questions about your medical history and help get you set up with a doctor in the community. *Return to Emergency Department if you should have any new, worsening or concerning symptoms, such as [fever greater than 101 F, shaking chills, worsening pain, persistent vomiting or other bothersome symptoms] Prescriptions: No Action bupropion HCl 150 mg Tablet Sustained-Release 12 Hr 150 mg PO BID RF: 0 venlafaxine 75 mg capsule,extended release 24hr 75 mg PO DAILY RF: 0 tamsulosin 0.4 mg capsule 0.4 mg PO DAILY RF: 0 albuterol sulfate 90 mcg/actuation Hfa Aerosol Inhaler 1 - 2 puff INHALATION Q4HR PRN (Reason: Asthma) RF: 0 lactulose 20 gram/30 mL Solution 30 g PO TID Qty: 1200 RF: 0 levofloxacin 500 mg tablet 500 mg PO DAILY Qty: 5 RF: 0 Lantus Solostar U-100 Insulin 100 unit/mL (3 mL) Insulin Pen 30 unit SUBCUT DAILY Qty: 15 RF: 0 Referrals: Ge Ortiz MD [Primary Care Provider] -
[2020-09-11 21:30] VITALS: BP 129/77; PULSE 93; RESP 16; O2SAT 99
[2020-09-11] MEDS: LIDOCAINE PATCH 1 EACH ADH..PATCH TOP (22:34)
[2020-09-11 22:38] VITALS: BP 124/71; PULSE 90; RESP 16; O2SAT 100
== END 2020-09-11 23:20 | disposition home or self-care (01) ==
PROVIDERS: Emergency Provider Emergency Medicine; PCP Internal Medicine
DX: M53.3 Sacrococcygeal disorders, not elsewhere classified (principal); W19.XXXA Unspecified fall, initial encounter
CPT/HCPCS: 72100; 72220; 99282; 99283